=== PATIENT | male | born 1990 | race Asian ===

== ENCOUNTER 2017-06-18 15:18 | Emergency (ER) | payer OTHER ==
[~2017-06-18] VITALS: Ht 177.8 cm; Wt 95.5 kg
[2017-06-18 15:21] VITALS: Ht 177.8 cm; Wt 95.5 kg
[2017-06-18] MEDS ORDERED: NEOM28OI TP (16:51)
[2017-06-18] MEDS ORDERED: ACET500C5 PO (16:51)
[2017-06-18] MEDS ORDERED: ACETAMINOPHEN 500 MG TAB PO STA (16:52)
--- NOTE | 2017-06-18 16:54 | ERD ---
ER Documentation Chief Complaint Date/Time DATE: 06/18/17 TIME: 16:52 Chief Complaint ABRASION ON FOREHEAD S/P FALL TODAY , NO LOC HPI This 27-year-old male presents after tripping and falling out of his truck today. He hit his forehead on the ground. There is no history of loss of consciousness, active bleeding, visual changes, vomiting, neck pain, weakness. His tetanus is up-to-date. ROS All systems reviewed and are negative except as per history of present illness. Medications Home Meds Active Scripts Neomycin Claire/Bacitrac Zn/Poly (Triple Antibiotic Ointment) 28 Gm Oint...g., 28 GM TP TID for 5 Days Prov:YASEMIN CORREA MD 06/18/17 Acetaminophen* (Tylophen*) 500 Mg Capsule, 1 CAP PO Q6H Y for PAIN AND OR ELEVATED TEMP, #20 CAP Prov:YASEMIN CORREA MD 06/18/17 Physical Exam Vitals Vital Signs Date Time Temp Pulse Resp B/P Pulse Ox O2 Delivery O2 Flow Rate FiO2 06/18/17 15:21 98.1 88 18 137/92 98 Physical Exam Const: [] Alert, [id number]. Head: There is a small abrasion with a hematoma on the forehead. There is no appreciable bony step-offs or deformities. Eyes: Normal Conjunctiva. Eyes are PERRLA and extraocular movements intact. ENT: Normal External Ears, Nose and Mouth. Neck: Full range of motion..~ No meningismus. Resp: Clear to auscultation bilaterally Cardio: Regular rate and rhythm, no murmurs Abd: Soft, non tender, non distended. Normal bowel sounds Skin: No petechiae or rashes Back: No midline or flank tenderness Ext: No cyanosis, or edema Neur: Awake and alert. Normal gait. No appreciable focal neurologic deficits. Cranial nerves II through XII grossly intact. Psych: Normal Mood and Affect Procedures/MDM Wound was cleansed and dressed. Patient is given Tylenol for pain. Patient presents with a forehead hematoma abrasion without signs or symptoms to suggest intracranial bleeding, mass-effect, neurologic deficit, fracture, neck injury. We treated with instructions for head injury at home and a wound check in 2 days. Patient is advised to return for new or worsening symptoms of head injury the next day or with primary care doctor this week. The patient was stable with no new complaints during the ER course. Clinically, there is no current evidence to suggest meningitis, sepsis, acute abdomen, pneumonia, acute coronary syndrome, pulmonary embolism, or any other emergent condition appearing to require further evaluation or hospitalization. The patient should certainly return for any new or worsening symptoms per the aftercare instructions. They should otherwise follow-up with her primary care doctor for reevaluation this week. Departure Diagnosis: Primary Impression: Abrasion Additional Impression: Acute head injury Encounter type: initial encounter Qualified Code: S09.90XA - Acute head injury, initial encounter Condition: Stable Patient Instructions: Abrasion, HEAD INJURY with Wake-Up (Adult) Additional Instructions: Recheck in 2 days for infection. Recheck otherwise sooner for vomiting, double vision, new or worsening symptoms. YASEMIN CORREA MD Jun 18, 2017 16:54
[2017-06-18] MEDS ORDERED: ACETAMINOPHEN 325 MG TAB ONE (17:04)
== END 2017-06-18 17:11 | disposition home or self-care (01) ==
LOC: FTE 15:18
DX: S00.81XA Abrasion of other part of head, initial encounter (principal); W01.0XXA Fall on same level from slipping, tripping and stumbling without subsequent striking against object, initial encounter; Y92.9 Unspecified place or not applicable
CPT/HCPCS: Z7502; Z7610; 99283